=== PATIENT | female | born 1980 | race Caucasian/White ===

== ENCOUNTER 2017-04-26 12:54 | Emergency (ER) | payer BC ==
[2017-04-26 13:14] VITALS: TEMP 98.1
[2017-04-26] MEDS ORDERED: CYCLOBENZAPRINE 10 MG TAB PO ONE (14:00)
[2017-04-26] MEDS ORDERED: LIDOCAINE 4%/MENTHOL 1% PATCH TD ONE (14:00)
--- NOTE | 2017-04-26 14:00 | EDPHY ---
General Time Seen by Provider: 04/26/17 13:29 Narrative: CHIEF COMPLAINT: Low back pain HISTORY OF PRESENT ILLNESS: Patient complains of low back pain. This started yesterday while skiing. She felt some mild pain in the area prior to skiing but after skiing she has significant increase in the pain. It is in the left lower back. It is left of midline. It does not radiate. There is no numbness or tingling. No weakness. No difficulty ambulating. It is severe, 10/10 pain that is constant. Minimal improvement with rest. Worse with palpation and movement. No incontinence of bowel or bladder. No saddle anesthesia. No other associated complaints or modifying factors. REVIEW OF SYSTEMS: Ten systems reviewed and are negative unless otherwise noted in the HPI PCP: None SPECIALISTS: None PAST MEDICAL HISTORY: Denies medical history PAST SURGICAL HISTORY: Wrist surgery remotely SOCIAL HISTORY: Nonsmoker. 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 No wheezing, rhonchi or crackles Cardiovascular: Regular rate and rhythm. No murmur Gastrointestinal: Abdomen is soft and nontender Back: No midline tenderness. No crepitus, step-off or deformity. There is point tenderness of the left lower musculature between L2 and L5. Neurological: A&O, nonfocal, strength is 5/5 in the lower extremities at the ankles, knees and hips. Patellar reflexes symmetric. Sensation to the dorsum of the feet, plantar surface of the fever and outside of the legs are symmetric. No footdrop and normal proprioception left great toe pain Skin: Warm and dry, no rash no petechiae or purpura Extremities: Nontender, no pedal edema Psychiatric: Mood and affect normal DIFFERENTIAL DIAGNOSES: Including but not limited to muscular strain, sprain, disc bulge, disc rupture, spasm MDM: 2:00 p.m. Acute low back pain with muscle spasm but no evidence of acute cord compression or cauda equina. There is no midline tenderness of the low back. Her neuro exam is well within normal limits and has no radiculopathy. She does have point tenderness of the low back musculature with no midline tenderness. No crepitus. She has symmetric patellar reflexes and is ambulatory but with moderate to severe pain. It is very lengthy discussion regarding symptomatic medications 1st opposition of strain and/or muscle spasm. I did offer an MRI of the lumbar spine but she has declined. I do feel it is reasonable to delay this as I do not appreciate any emergent findings. I do feel she is stable for discharge home and I will provide prescription of prednisone, Flexeril and Percocet. We discussed taking the Percocet and Flexeril separately. We discussed transitioning from ibuprofen to prednisone. We discussed strict ED precautions including worsening pain, radicular pain, numbness, tingling, incontinence of bowel or bladder, retention of bowel or bladder. She is comfortable this plan and discharged home stable condition. SUPERVISION: This patient was independently evaluated without direct involvement of or examination by the attending physician. - History Smoking Status: Never smoked - Objective Vital Signs: Initial Vital Signs Temperature (C) 98.1 F 04/26/17 13:05 Heart Rate 85 04/26/17 13:05 Respiratory Rate 16 04/26/17 13:05 Blood Pressure 109/68 04/26/17 13:05 O2 Sat (%) 98 04/26/17 13:05 O2 Delivery Mode Room Air Allergies/Adverse Reactions: doxycycline Allergy (Mild, Verified 04/26/17 13:11) Rash Home Medications: Medication Instructions Recorded Cyclobenzaprine [Cyclobenzaprine 5 mg PO TID #11 tab 04/26/17 HCl] oxyCODONE HCL/ACETAMINOPHEN 1 each PO Q4-6PRN PRN #7 tablet 04/26/17 [Percocet 5-325 mg Tablet] predniSONE [Deltasone] 60 mg PO DAILY #15 tablet 04/26/17 Medications Given: Discontinued Medications Cyclobenzaprine HCl (Flexeril) 5 mg PO EDNOW ONE Stop: 04/26/17 14:01 Last Admin: 04/26/17 14:10 Dose: 5 mg Miscellaneous Medication (Icy Hot Lidocaine/Menthol 4%/1% Patch) 1 patch TD EDNOW ONE Stop: 04/26/17 14:01 Last Admin: 04/26/17 14:10 Dose: 1 patch Departure - Departure Disposition: Home, Routine, Self-Care Clinical Impression: Muscle spasm of back Acute lumbar myofascial strain Qualifiers: Encounter type: initial encounter Qualified Code(s): S39.012A - Strain of muscle, fascia and tendon of lower back, initial encounter Condition: Good Instructions: Low Back Strain (ED), Acute Low Back Pain (ED), Muscle Spasm (ED) Additional Instructions: 1. Contact the on-call primary care physician as provided 2. Flexeril 5 mg as prescribed every 8 hr as needed 3. Prednisone burst for the next 3-5 days as prescribed 4. Percocet as prescribed as needed. Do not take in conjunction with the Flexeril 5. Contact the on-call bibliographic services specialist as needed 6. ED precautions for any radiating pain, numbness, tingling, weakness, incontinence of bowel or bladder, saddle anesthesia or intolerable pain 7. Lidoderm [id number] patches, 12 hr on, 12 hr off as needed Referrals: Renzo Krishnan DO [Medical Doctor] - As per Instructions Partha Hickey MD [Medical Doctor] - As per Instructions Prescriptions: Cyclobenzaprine [Cyclobenzaprine HCl] 5 mg PO TID #11 tab oxyCODONE HCL/ACETAMINOPHEN [Percocet 5-325 mg Tablet] 1 each PO Q4-6PRN PRN #7 tablet PRN Reason: Pain, Breakthrough predniSONE [Deltasone] 60 mg PO DAILY #15 tablet
[2017-04-26 14:27] VITALS: BP 103/69; PULSE 79; RESP 18; O2SAT 99
[2017-04-26] MEDS ORDERED: PATCH REMOVAL 1 EA PATCH TD SCH (21:00)
== END 2017-04-26 14:36 | disposition home or self-care (01) ==
DX: S39.012A Strain of muscle, fascia and tendon of lower back, initial encounter (principal); X58.XXXA Exposure to other specified factors, initial encounter; Y99.8 Other external cause status; Y93.23 Activity, snow (alpine) (downhill) skiing, snowboarding, sledding, tobogganing and snow tubing